=== PATIENT | female | born 1995 | race Caucasian/White ===

== ENCOUNTER 2018-10-19 03:47 | Emergency (ER) | payer SELFPAY ==
[2018-10-19] MEDS: predniSONE 20 MG TAB PO (04:04)
[2018-10-19] MEDS: IPRATROPIUM (NEB) 0.5 MG/2.5 ML AMP INH (04:08)
[2018-10-19] MEDS: ALBUTEROL 0.5% (NEB) 2.5 MG/0.5 ML AMP INH (04:08)
== END 2018-10-19 05:32 | disposition home or self-care (01) ==
LOC: FTE 03:47
DX: J45.901 Unspecified asthma with (acute) exacerbation (principal)
CPT/HCPCS: 94644; 99283-25